=== PATIENT | female | born 1985 | race African-American/Black ===

== ENCOUNTER 2016-11-20 06:10 | Emergency (ER) | payer MEDICAID ==
[~2016-11-20] VITALS: Ht 165.1 cm; Wt 62.1 kg
[2016-11-20] MEDS ORDERED: DIPHENHYDRAMINE 50MG/ML VIAL IM ONE (07:00)
[2016-11-20] MEDS ORDERED: FAMOTIDINE 20MG/2ML VIAL IV ONE (07:00)
[2016-11-20 07:45] VITALS: BP 114/65
== END 2016-11-20 08:00 | disposition home or self-care (01) ==
LOC: ER 06:10
DX: B01.9 Varicella without complication (principal)
CPT/HCPCS: 99283; J1200; J3490